=== PATIENT | male | born 1995 | race Caucasian/White ===

== ENCOUNTER 2018-09-27 23:35 | Emergency (ER) | payer OTHER ==
[~2018-09-27] VITALS: Ht 177.8 cm; Wt 86.2 kg
[2018-09-27] MEDS ORDERED: ACETAMINOPHEN 500 MG TAB (TYLENOL) ONE (23:54)
[2018-09-28] MEDS ORDERED: ACETAMINOPHEN 500 MG TAB (TYLENOL) PO ONE
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
[2018-09-28] MEDS ORDERED: ACET-93 PO (00:45)
[2018-09-28 00:50] VITALS: BP 133/80
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
== END 2018-09-28 00:50 | disposition home or self-care (01) ==
LOC: ER FS 23:38
DX: S06.0X1A Concussion with loss of consciousness of 30 minutes or less, initial encounter (principal); R40.2142 Coma scale, eyes open, spontaneous, at arrival to emergency department; R40.2252 Coma scale, best verbal response, oriented, at arrival to emergency department; R40.2362 Coma scale, best motor response, obeys commands, at arrival to emergency department; Y04.8XXA Assault by other bodily force, initial encounter; Y92.149 Unspecified place in prison as the place of occurrence of the external cause
CPT/HCPCS: 70450; 70486